=== PATIENT | female | born 1935 | race Caucasian/White ===

== ENCOUNTER 2025-05-30 21:34 | Emergency (ER) | payer OTHER ==
[~2025-05-30] VITALS: Ht 157.5 cm; Wt 50.0 kg
[2025-05-30 21:45] VITALS: TEMP 98.4; O2SAT 98
[2025-05-31 03:24] VITALS: BP 114/50; PULSE 75; RESP 16
== END 2025-05-31 04:18 | disposition home or self-care (01) ==
LOC: EMS 21:40
DX: M54.9 Dorsalgia, unspecified (principal); E78.00 Pure hypercholesterolemia, unspecified; I11.9 Hypertensive heart disease without heart failure; Z85.3 Personal history of malignant neoplasm of breast; W19.XXXA Unspecified fall, initial encounter
CPT/HCPCS: 99283; Z7502